=== PATIENT | female | born 1995 | race American Indian/Alaskan Native ===

== ENCOUNTER 2018-03-31 15:14 | Emergency (ER) | payer SELFPAY ==
[2018-03-31 15:52] VITALS: BP 114/75
--- NOTE | 2018-03-31 17:59 | Emergency Department Report ---
[facility] Chief Complaint: Eye Problems Stated Complaint: EYES RED Time Seen by Provider: 03/31/18 17:54 Duration: 3 Days Side: Right Symptoms: Yes Eye Itching (right eye), Yes Eye Redness (right eye), Yes Purulent Drainage (Garcia right eye), No Eye Pain, No Mucous Drainage, No Blurred Vision, No Preceding URI, No H/O Allergic Rhinitis, No Contact Lens Use (glasses), No Trauma, No Fever, No Headache Other History: This is a 22-year-old female here reports that she is redness to eyes. She said it started in her left eye last week and now started 3 days ago and oriented. She denies any injury. Denies any eye pain. Denies any change in her vision or any foreign body sensation. She wears glasses and denies any sensitivity to light. Reports mucus drainage. Denies any allergies. Denies any cough, sore throat, fever or chills. Reports itching, tetanus vaccine is up -to-date. Pain is 0/10 .no medication taken. ED Review of Systems ROS: Stated complaint: EYES RED Other details as noted in HPI Constitutional: denies: chills, fever Eyes: eye discharge, other (eye redness). denies: eye pain, vision change ENT: denies: ear pain, throat pain, congestion Respiratory: denies: cough, shortness of breath, wheezing Cardiovascular: denies: chest pain, palpitations Gastrointestinal: diarrhea. denies: nausea, vomiting Genitourinary: denies: discharge Musculoskeletal: denies: arthralgia Skin: denies: rash, lesions Neurological: denies: headache Hematological/Lymphatic: easy bruising ED Past Medical Hx - Past Medical History Previous Medical History?: No - Surgical History Past Surgical History?: No - Family History Family history: no significant - Social History Smoking Status: Never Smoker Substance Use Type: None - Medications Home Medications: Home Medications Medication Instructions Recorded Confirmed Last Taken Type Gentamicin 0.3% Ophth Soln 2 drops OP Q8H 7 Days #1 bottle 03/31/18 Unknown Rx [facility] Exam - Exam General: Vital signs noted. No distress. Alert and acting appropriately. Peripheral female well-nourished well-developed in no acute distress. Eye Exam: Both Injection, Both EOMI, Both Mucous Discharge, Neither Chemosis, Neither Abnormal Pupil, Neither Eye Foreign Body, Neither Lid Foreign Body, Neither Purulent Discharge, Neither Corneal Edema, Neither Photophobia HEENT: No Nasal Congestion, No Pharyngeal Erythema Remainder of HEENT: Normal Lungs: Yes Clear Lung Sounds, No Good Air Exchange, No Wheezes, No Stridor, No Cough, No Nasal Flaring, No Retractions, No Use of Accessory Muscles Exam: Visual acuity is 20/100 all around. This is without glasses and patient said her vision is poor when she does not have her glasses. ED Course Vital Signs 03/31/18 15:50 Temperature 98.5 F Pulse Rate 82 Respiratory 18 Rate Blood Pressure 114/75 O2 Sat by Pulse 100 Oximetry - Reevaluation(s) Reevaluation #1: 03/31/18 18:36 Patient safe throughout ED course. ED Medical Decision Making - Medical Decision Making This is a 23-year-old female here report that she has bilateral eye redness now worse in her right eye and she is here to be evaluated. She was evaluated by myself and examination found patient with bilateral conjunctivitis worse in right eye. Visual acuity is 20/100 all around and this is without her glasses. She denies wearing any contacts. Tetanus vaccine is up -to-date. Patient does not seem to be in any pain or distress she denies any pain or distress. She denies any loss of vision. I discussed the patient that she will need to follow up with upholsterer inside in 4 days and I discussed status she has bilateral conjunctivitis which is pinkeye and she will need to use antibiotic eyedrops 3 times a day 7 days. She voiced understanding and I also encouraged her to practice good hand hygiene and she should return to work in 2 days. Patient discharged home with her family stable condition with prescription for gentamicin ophthalmic solution. Critical care attestation.: If time is entered above; I have spent that time in minutes in the direct care of this critically ill patient, excluding procedure time. ED Disposition Clinical Impression: Conjunctivitis, both eyes Qualifiers: Conjunctivitis type: acute Acute conjunctivitis type: unspecified Qualified Code(s): H10.33 - Unspecified acute conjunctivitis, bilateral Disposition: DC-01 TO HOME OR SELFCARE Is pt being admited?: No Does the pt Need Aspirin: No Condition: Stable Instructions: Conjunctivitis (ED) Additional Instructions: Please practice good hand hygiene Follow-up with upholsterer inside as instructed Referring friend wearing contacts. Wearing glasses Use antibiotic eyedrops as instructed Prescriptions: Gentamicin 0.3% Ophth Soln 2 drops OP Q8H 7 Days #1 bottle Referrals: [facility] [Outside] - 3-5 Days MEGHAN JOHNSON MD [Staff Physician] - 04/01/18 Forms: Accompanied Note, Work/School Release Form(ED)
== END 2018-03-31 18:43 | disposition home or self-care (01) ==
LOC: ED 15:14
DX: H10.33 Unspecified acute conjunctivitis, bilateral (principal)
CPT/HCPCS: 99282